=== PATIENT | male | born 1995 | race Two or more races ===

== ENCOUNTER 2019-09-25 10:21 | Emergency (ER) | payer OTHER ==
[~2019-09-25] VITALS: Ht 170.2 cm; Wt 56.7 kg
[~2019-09-25 10:21] MED LIST: Adderall 20 MG20 MG PO; Cephalexin500 MG PO; OSEL75CA PO
== END 2019-09-25 11:37 | disposition home or self-care (01) ==
LOC: ER 10:21
DX: S29.9XXA Unspecified injury of thorax, initial encounter (principal); S01.01XD Laceration without foreign body of scalp, subsequent encounter; S01.81XD Laceration without foreign body of other part of head, subsequent encounter; X58.XXXA Exposure to other specified factors, initial encounter
CPT/HCPCS: 71101; 99283-25

== ENCOUNTER 2021-04-10 05:16 | Emergency (ER) | payer OTHER ==
[~2021-04-10] VITALS: Ht 170.2 cm; Wt 54.4 kg
[2021-04-10 06:30] LABS: BASOPHILS ABSOLUTE AUTO 0.05 K/mm3 (0.00-0.23); BASOPHILS PERCENT AUTO 0 % (0-2); EOSINOPHILS PERCENT AUTO 1 % (0-6); Hematocrit 47.3 % (37.0-53.0); Hemoglobin 16.3 g/dL (13.5-17.5); IMMATURE GRAN ABSOLUTE AUTO 0.05 K/mm3 (0.00-0.10); IMMATURE GRAN PERCENT AUTO 0 % (0-1); LYMPHOCYTES ABSOLUTE AUTO 2.72 K/mm3 (0.84-5.20); LYMPHOCYTES PERCENT AUTO 22 % (21-46); MONOCYTES ABSOLUTE AUTO 0.93 K/mm3 (0.16-1.47); MONOCYTES PERCENT AUTO 8 % (4-13); Mean Corpuscular HGB 32.6 pg (26.0-34.0); Mean Corpuscular HGB Conc 34.5 g/dL (31.5-36.5); Mean Corpuscular Volume 95 fL (80-100); Mean Platelet Volume 11.6 fL (9.1-12.4); NEUTROPHILS ABSOLUTE AUTO 8.57 K/mm3 (1.96-9.15); NEUTROPHILS PERCENT AUTO 69 % (41-73); Platelet Count 160 K/mm3 (150-400); RDW Coefficient Variation 11.9 % (11.7-14.2); RDW Standard Deviation 41.1 fL (35.1-46.3); White Blood Cell Count 12.42 K/mm3 (4.00-11.30)
[2021-04-10 07:11] LABS: Alanine Aminotransfer (ALT/SGP 22 U/L (12-78); Albumin, Blood 4.4 g/dL (3.4-5.0); Albumin/Globulin Ratio 1.2 (0.8-1.8); Alk Phos 62 U/L (50-136); Anion Gap 6 mmol/L (6-16); Aspartate Aminotrans (AST/SGOT 19 U/L (12-37); Bilirubin, Total 0.4 mg/dL (0.1-1.0); Blood Urea Nitrogen 12 mg/dL (8-24); Bun/Creatinine Ratio 14.9 (12.0-20.0); CO2, Blood 24 mmol/L (21-32); Calcium, Blood 9.4 mg/dL (8.5-10.1); Chloride, Blood 110 mmol/L (98-108); Globulin, Blood 3.7 g/dL (2.2-4.0); Glomerular Filtration Rate >60 (60-); Glucose, Blood 135 mg/dL (70-99); Potassium, Blood 3.6 mmol/L (3.5-5.5); Sodium, Blood 140 mmol/L (136-145); Total Protein, Blood 8.1 g/dL (6.4-8.2)
[2021-04-10 07:42] LABS: Source, Urine Clean Catch
[2021-04-10 07:50] LABS: Appearance, Urine Clear (Clear); Bilirubin, Urine Neg (Neg); Blood, Urine 5+ (Neg); Color, Urine Yellow (P-Yellow); Glucose Qualitative, Urine Neg (Neg); Ketones, Urine Neg (Neg); Leukocyte Esterase, Urine Neg (Neg); Nitrite, Urine Neg (Neg); Protein, Urine 2+ (Neg); Urobilinogen, Urine NORM (Normal); pH, Urine 6.5 (5.0-8.0)
[2021-04-10 08:01] LABS: Red Blood Cells, Urine 25-50 /hpf (0-2)
[2021-04-10 08:02] LABS: Squamous Epithelial Cells Rare /hpf (Few)
[2021-04-10 08:04] LABS: Bacteria Not Seen /hpf
== END 2021-04-10 09:11 | disposition home or self-care (01) ==
LOC: ER 05:16
PROVIDERS: Emergency Medicine
DX: N13.2 Hydronephrosis with renal and ureteral calculous obstruction (principal); F17.210 Nicotine dependence, cigarettes, uncomplicated
CPT/HCPCS: 36415; 74176; 80053; 81001; 83690; 85025; 96374; 96375; 99284-25; J1170; J1885; J2405; J7030

== ENCOUNTER 2025-01-28 15:04 | Emergency (ER) | payer OTHER ==
[~2025-01-28] VITALS: Ht 172.7 cm; Wt 56.7 kg
[2025-01-28 15:11] VITALS: BP 118/88
== END 2025-01-28 16:10 | disposition home or self-care (01) ==
LOC: ER 15:04
DX: S90.31XA Contusion of right foot, initial encounter (principal); W22.8XXA Striking against or struck by other objects, initial encounter
CPT/HCPCS: 73630; 99283-25